=== PATIENT | female | born 2000 | race Caucasian/White ===

== ENCOUNTER → 2022-06-16 | Outpatient (CLI) | payer MEDICAID, SELFPAY ==
[2022-06-16 10:18] LABS: Hematocrit 43.5 % (37-47); Hemoglobin 15.1 g/dL (12.0-15.0); Mean Corp Hgb Conc 34.7 g/dL (32-36); Mean Corpuscular Hgb 30.8 pg (27.0-32.0); Mean Corpuscular Volume 88.8 fL (81-99); Mean Platelet Vol. 10.4 fl (6.2-12.0); Platelet Count 182 K/mm3 (150-450); RBC Distribution Width CV 11.9 % (11.6-14.6); RBC Distribution Width SD 38.9 fl (35.1-43.9); White Blood Count 5.7 K/mm3 (4.4-11.0)
[2022-06-16 10:41] LABS: Color, Urine Yellow (Yellow); Glucose, Dipstick Normal (Normal); Ketone-Dipstick 5 mg/dl (Negative); Leukocyte Esterase-Dipstick Negative /ul (Negative); Nitrite-Dipstick Negative (Negative); Occult Blood-Urine Negative /ul (Negative); Protein-Dipstick 15 mg/dl (Negative); Urine Bilirubin Dipstick Negative (Negative); Urine Clarity Sl. Cloudy (Clear); Urine Urobilinogen Normal (Normal)
[2022-06-16 11:08] LABS: ALB/GLOB Ratio 1.3 RATIO (0.9-2.4); AST(SGOT) 20 U/L (15-37); Alanine Aminotransfer ALT/SGPT 30 U/L (13-56); Albumin, Serum 4.3 g/dL (3.2-5.0); Alkaline Phosphatase 56 U/L (45-117); Anion Gap 6 (5-15); BUN 8 mg/dL (7-18); BUN/Creat Ratio 7.7 RATIO (10-20); Calcium,Total 9.4 mg/dL (8.5-10.1); Chloride 105 mmol/L (98-107); Creatinine, Serum 1.04 mg/dL (0.55-1.02); EST Glomerular Filtration Rate 70 mL/min (>60); Est Glom Filt Rate - Afr Amer 85 mL/min (>60); Ferritin 45 ng/mL (8-252); Globulin 3.4 g/dL (2.2-4.2); Glucose 88 mg/dL (74-106); Iron 124 ug/dL (50-170); Iron Binding Capacity,Total 308 ug/dL (250-450); PERCENT IRON SATURATION 40.3 % (15.0-55.0); Potassium 4.2 mmol/L (3.5-5.1); Protein, Total 7.7 g/dL (6.4-8.2); Sodium Level 139 mmol/L (136-145)
[2022-06-16 11:18] LABS: Vitamin B12 528 pg/mL (211-911)
== END | disposition home or self-care (01) ==
LOC: MFPLAB 08:14
PROVIDERS: PCP Physician Assistant; Referring Provider Physician Assistant; Visit Provider Physician Assistant
DX: Z79.899 Other long term (current) drug therapy (principal)
CPT/HCPCS: 36415; 80053; 81002; 82306; 82607; 82728; 82746; 83540; 83550; 85027

== ENCOUNTER 2022-06-21 15:44 | Emergency (ER) | payer MEDICAID, SELFPAY ==
[2022-06-21 15:45] VITALS: BP 115/77; PULSE 101; RESP 16; TEMP 37.9; O2SAT 97; BMI 15.5
--- NOTE | 2022-06-21 16:31 | CM.ED ---
SW Note Referral Source: MD Referral Reason: Mental Health Chief Complaint: Patient said that she called the appointment line today to schedule an MD appointment when she began to talk about depression and when she began to talk about depression they switched her to a RN who told her to go to the ED. Patient said that she was first diagnosed with anxiety and depression at age 15. Patient said that she has been diagnosed with MDD. Patient reports being on and off meds. Patient said that in April she took 170 pills of Wellbutrin (300mg) but slept for 2 days and woke up. Patient said that everyday I don't want to wake up. SW asked patient if she wants to and she said I just don't want to wake up. Patient has overdosed 3 x in the last 2 years. She overdosed on Zoloft, Celexa and in April Wellbutrin. Patient said that she feels like I am drowning and overwhelmed . Patient stated the feelings don't go away. SW asked patient if she wanted to on 04/14 and patient said yes. Patient said that I don't think I will make it another month without trying again (referencing suicide). When patient overdosed in April she sleep for 2 days and woke up. SW asked patient how she felt when she woke up and patient said disappointed. Patient was asked what she lives for and she said bills. SW asked who would miss patient if she and she said my dad and stepmom and started crying. Patient reports feeling helpless and hopeless. Patient reports she sleeps alot. She naps when she gets home from work and then sleeps a full 8 hours. Patient voiced she eats one time a day and she had lost 60 lbs unintentionally for the past 1 10/11. Marital status: Single with boyfriend Gender: Female Sexual Orientation: Heterosexual No kids No arrests or legal issues Resides in apartment with a friend, [place] Support: I don't talk to anyone about it. : No Education and Employment History: Patient graduated high school . No learning issues. Works at [employer] in [place]. Mental Health Treatment: Patient has never seen a counselor psychiatrist. No previous psych treatment. Patient said that she was previously prescribed medication by various ASSOCIATE PROFESSOR OF VIOLIN's. No psych hospitalizations. Triggers: I don't know. Patient said I don't want to get out of bed and I plan things with my friends and then cancel as I can't get out of bed. Coping Skills: Patient said smoking pot. Patient said I talk to my friend Nory but I feel my depression is more severe and no one will understand how I feel. Abuse Issued: Denied Substance Abuse: Patient reports she smokes marijuana 2x a day. Patient reports infrequent use of alcohol which she reported was 1 time a month. Patient said that she drinks anything alcohol. Risk To Self and Others Suicidal: Patient said that she doesn't want to wake up and reports because I feel like I am drowning and overwhelmed. Patient has voiced that she will attempt suicide in an month. Patient said that she has researched how to overdose and how many pills she needs to take to kill herself. Patient said that she has researched all 3 times she has overdosed. She said all I do is throw up Homicidal: Denied Violence: Patient denied violence to self. Patient reports she has angry problems and quantified that she gets angry real fast. Patient said that she does slam things around. MSE Orientation x4 Memory: Good Appearance: Wearing hospital gown. Clean and appropriate Mood and Affect: Depressed mood and affect. Tearful throughout the assessment. Poor eye contact Communication Patterns: Responds to questions Thought Process: Appropriate. General Intellectual Functioning: Average Judgement: Impaired Insight: Insight SW spoke to patient about needing inpatient psych. She is in agreement with inpatient psych. Patient presents with history of ODing on medication with her most recent being 170 300mg Wellbutrin. Patient reports that she has limited reason to live and feels only her stepmom and dad would miss her. Patient is hopeless and helpless. Thought patient voiced no current SI her impulsivity is concerning and it is this radio news writer's concern that she may successfully OD as she has said I think I will do it again in the next month which increases the risk. JOSELIN consulted with MD Munoz. He concurs that patient needs inpatient psych Plan: Inpatient psych Jenny BLANK
--- NOTE | 2022-06-21 17:08 | RAD_ITS ---
STUDY: X-RAY CHEST REASON FOR EXAM: Female, 22 years old. CHEST PAIN cp TECHNIQUE: XR Chest 1 View COMPARISON: None FINDINGS: There is no demonstrated pleural abnormality. Normal size heart. Normal mediastinum and caitlin. Normal visualized pulmonary arteries. Normal visualized aortic arch and descending thoracic aorta. Normal visualized thoracic spine. Normal visualized ribs, clavicles, and shoulders. There is no demonstrated abnormality of the visualized soft tissue structures of the upper abdomen. RAD/Chest 1 View (Portable) IMPRESSION: There are no acute findings. Electronically Signed: Ha Flores MD at 17:36 EDT ,
--- NOTE | 2022-06-21 17:24 | EDS_ITS ---
HPI HPI - Psych History of Present Illness Chief Complaint: Mental Health Narrative Narrative: 22-year-old female who identifies as a male presenting at the request of her psychiatric physician who did blood work today and said that him eating disorder was getting out of control and that it was affecting him physically. Apparently she had some ketones and protein in him urine. Patient states they are working on a diagnosis of paranoid schizophrenia. He states that she is been this way for some time. He states that he is having hallucinations of shadow people. He denies audible hallucination. He does not have any suicidal or homicidal ideation. He does further state that anytime he eats anything significantly he vomits. PFSH PFS Medical History Eating disorder Hormone replacement therapy Home Medications fluoxetine 40 mg capsule (Prozac) 40 mg PO DAILY 06/21/22 [History Last Taken Unknown] hydroxyzine HCl 50 mg tablet 50 mg PO QHS 06/21/22 [History Last Taken Unknown] testosterone cypionate 100 mg/mL intramuscular oil 100 mg IM QWEEK 06/21/22 [History Last Taken Unknown] ziprasidone HCl 60 mg capsule (Geodon) 60 mg PO BID 06/21/22 [History Last Taken Unknown] Allergy/AdvReac Type Severity Reaction Status Date / Time No Known Allergies Allergy Verified 06/21/22 15:45 Social History Smoking Status: Current every day smoker tobacco type: cigarettes ROS ROS ED Constitutional Constitutional ED: Denies chills or fever(s) Eyes Eyes: Denies change in vision or diplopia ENT ENT ED: Denies rhinorrhea or sore throat Cardiovascular Cardiovascular: Denies chest pain or palpitations Respiratory/Chest Respiratory/Chest: Denies cough or dyspnea Gastrointestinal Gastrointestinal: Reports nausea and vomiting; Denies abdominal pain Genitourinary Genitourinary ED: Denies dysuria or hematuria Musculoskeletal Musculoskeletal: Denies arthralgias or back pain Integumentary Denies abscess, Abrasions or rash Neurologic Neurologic: Denies headache(s) or paresthesias Psychiatric Psychiatric: Denies suicidal ideation or suicidal thoughts Endocrine Endocrinology: Denies polydipsia or polyphagia EXAM Physical Exam Const Vital Signs: 06/21/22 15:45 06/21/22 19:42 Temperature 100.2 F H Temperature Source Temporal Pulse Rate 101 H 74 Respiratory Rate 16 20 H Blood Pressure 115/77 Blood Pressure Mean 89 Pulse Ox 97 97 Oxygen Delivery Method Room Air General Appearance ED: NAD; Negative for pallor HEENT normocephalic Eyes PERRL and EOMs intact bilaterally General Eye ED: Negative for pale conjunctiva or scleral icterus Resp normal respiratory effort and clear to auscultation bilaterally Auscultation: Negative for rales, rhonchi or wheezes Cardio Rate: regular rate Rhythm: regular rhythm GI non-tender Extremity normal to inspection Neuro oriented x3 and CN's II-XII intact bilaterally Psych mental status grossly normal, speech normal, denies homicidal ideation and denies suicidal ideation Appearance: grossly normal Attitude: calm and engaged Activity / Motor Behavior: appropriate eye contact Speech: normal speech Thought Process: normal thought process Thought Content: hallucination(s) Positive for visual Attention / Concentration: attention grossly intact Memory / Cognition: memory grossly intact Insight: fair Judgement: fair Skin General Skin Exam: Negative for jaundice or pallor MDM MDM MDM Narrative Medical decision making narrative: I did review the patient's blood work from today. Her CBC and CMP are essentially normal. Her urinalysis showed some small protein and ketones which is consistent with her eating disorder. Patient is 22 with no history of heart disease so I do not believe she is having cardiac related chest pain. He reports he is happy which on my interpretation shows no acute cardiopulmonary process and the radiologist does agree. Rapid COVID was negative. His high- sensitivity troponin is normal. Heart and lung exams normal. I had social work come talk to he and his mother about the symptoms being so long-term. He is not homicidal or suicidal. He does have some psychiatric issues which I believe can be followed up outpatient. The social service assistant was able to get him set up with IOP. They are amenable to this plan. He was safety planned. Impression: 1. Depression 2. Eating disorder 3. Hallucinations 4. Paranoid Lab Data Attestation: I reviewed the patient's lab results. Labs: Laboratory Results - last 24 hr 06/21/22 17:08 Troponin I High Sens 3 Radiography Diagnostic Testing: Clinical Impression(s) from Imaging Studies Chest X-Ray 06/21/22 17:08 IMPRESSION: There are no acute findings. Electronically Signed: Ha Flores MD at 17:36 EDT Reading Location ID and State: [facility] / ID , Service support , Discharge Plan Triage Chief Complaint: Mental Health ED Provider: Pankaj Isaac Dx/Rx/DC Orders Instructions: Treating Eating Disorders Prescriptions: No Action fluoxetine [Prozac] 40 mg Capsule 40 mg PO DAILY testosterone cypionate 100 mg/mL Oil 100 mg IM QWEEK hydroxyzine HCl 50 mg Tablet 50 mg PO QHS ziprasidone HCl [Geodon] 60 mg Capsule 60 mg PO BID Rx Instructions: give with food (meal/snack) Primary Care Provider: Della Flores Referrals: Della Flores, PA [Primary Care Provider] - Disposition Disposition: Home, Self Care Discharge Date/Time: 06/21/22 19:43
[2022-06-21 17:32] LABS: Troponin-I HS 3 pg/mL (3.0-54.0)
--- NOTE | 2022-06-21 18:07 | ED.RN ---
UPDATED PTOU PROCESS AND CARE. GRETEL JAIN BEDSIDE.
[2022-06-21 19:42] VITALS: PULSE 74; RESP 20; O2SAT 97
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
--- NOTE | 2022-06-22 12:58 | CM.ED ---
SW called patient to follow up on safety plan from yesterday. Patient said that he is doing ok and relaxing. SW advised that it is important that patient follows up on Medicaid and follow up with [facility]. Patient verbalized understanding. JOSELIN explained that the ED is always open and if patient is in crisis he can always come back. Patient verbalized understanding. Jenny BLNAK
== END 2022-06-21 19:43 | disposition home or self-care (01) ==
PROVIDERS: Emergency Provider Student in an Organized Health Care Education/Training Program; PCP Physician Assistant; Visit Provider Student in an Organized Health Care Education/Training Program
DX: F32.A Depression, unspecified (principal); F50.9 Eating disorder, unspecified; F17.210 Nicotine dependence, cigarettes, uncomplicated; Z60.9 Problem related to social environment, unspecified
CPT/HCPCS: 71045; 84484; 87811; 99282